=== PATIENT | female | born 1975 | race African-American/Black ===

== ENCOUNTER 2017-02-09 16:19 | Inpatient (IN) | payer BC, MEDICAID ==
[~2017-02-09] VITALS: Ht 165.1 cm; Wt 74.5 kg
[2017-02-09] MEDS ORDERED: SODIUM CHLORIDE 0.9% 1,000 ML IVB ONE (16:35)
[2017-02-09 18:11] LABS: Urine Bilirubin Negative (Negative); Urine Color Red (Yellow); Urine Glucose Normal (Normal); Urine Ketone TRACE (Negative); Urine Nitrite Negative (Negative); Urine RBC 3487 /hpf (0 - 4); Urine Squamous Epithelial Cell FEW /hpf (<5); Urine Urobilinogen Normal (Negative)
[2017-02-09 18:17] LABS: Urine Blood 3+ /uL (Negative)
[2017-02-09 18:38] LABS: Basophils # (auto) 0 uL; Basophils % (auto) 0.3 % (0.0-2.0); Eosinophils # (auto) 0.1 uL; Eosinophils % (auto) 1.2 % (0.0-7.0); Hematocrit 33.5 % (36.0-46.0); Hemoglobin 10.9 g/dL (12.2-16.2); Lymphocytes # (auto) 1.1 uL; Lymphocytes % (auto) 23.4 % (10.0-50.0); Mean Corpuscular Hemoglobin 28.3 pg (28.0-32.0); Mean Corpuscular Hgb Conc. 32.3 g/dL (32.0-36.0); Mean Corpuscular Volume 87.4 fL (80.0-100.0); Monocytes # (auto) 0.5 uL; Monocytes % (auto) 11.4 % (0.0-12.0); Neutrophils # (auto) 2.9 uL; Neutrophils % (auto) 63.7 % (37.0-80.0); Platelet Count (auto) 220 10^3/uL (140-450); Red Cell Distribution Width 15.8 % (11.6-16.0); White Blood Cell 4.5 10^3/uL (4.4-10.8)
[2017-02-09 18:53] LABS: INR 0.99 (0.9-1.15); Partial Thromboplastin Time 30.1 sec (22.64-33.71); Prothrombin Time 10.7 sec (9.37-12.3)
[2017-02-09 19:00] LABS: Albumin 3.4 g/dL (3.4-5.0); Alkaline Phosphatase 77 U/L (45-117); Anion Gap 10 (5-15); Aspartate Aminotransferase 165 U/L (15-37); Bilirubin, Total 0.5 mg/dL (0.2-1.0); Blood Urea Nitrogen 5 mg/dL (7-18); Calcium 8.6 mg/dL (8.5-10.1); Carbon Dioxide 23 mmol/L (21-32); Chloride 104 mmol/L (98-107); GFR African American 96 mL/min; GFR Non-African American 79 mL/min; Glucose 69 mg/dL (74-106); Magnesium 2.7 mg/dL (1.6-2.6); Potassium 4.3 mmol/L (3.5-5.1); Sodium 137 mmol/L (136-145); Total Protein 7.7 g/dL (6.4-8.2)
[2017-02-09] MEDS ORDERED: cefTRIAXone 1GM/50ML D5W 50 ML IV ONE (19:45)
[2017-02-09] MEDS ORDERED: CLINDAMYCIN 600MG IV 50 ML IV ONE (23:00)
[2017-02-09] MEDS ORDERED: ACETAMINOPHEN 325 MG TAB PO PRN (23:00)
[2017-02-10] VITALS (7 sets, daily range): BP systolic 100–125; BP diastolic 64–82
[2017-02-10] MEDS ORDERED: PANT40TA2 PO (01:18)
[2017-02-10] MEDS ORDERED: TRAM-297 PO (01:18)
[2017-02-10] MEDS ORDERED: ALPR1TAB2 PO (01:18)
[2017-02-10] MEDS: HYDROcodone-ACET 7.5/325MG TAB PO PRN ×3 (02:09→16:39)
[2017-02-10] MEDS: CLINDAMYCIN 600MG IV 50 ML IV SCH ×3 (05:36→23:01)
[2017-02-10 05:39] LABS: Basophils # (auto) 0 uL; Basophils % (auto) 0.1 % (0.0-2.0); Eosinophils # (auto) 0.1 uL; Eosinophils % (auto) 3.1 % (0.0-7.0); Hematocrit 33.6 % (36.0-46.0); Hemoglobin 10.8 g/dL (12.2-16.2); Lymphocytes # (auto) 1.3 uL; Lymphocytes % (auto) 35.2 % (10.0-50.0); Mean Corpuscular Hemoglobin 28.3 pg (28.0-32.0); Mean Corpuscular Hgb Conc. 32.2 g/dL (32.0-36.0); Mean Corpuscular Volume 87.8 fL (80.0-100.0); Monocytes # (auto) 0.5 uL; Monocytes % (auto) 14.4 % (0.0-12.0); Neutrophils # (auto) 1.8 uL; Neutrophils % (auto) 47.2 % (37.0-80.0); Platelet Count (auto) 232 10^3/uL (140-450); Red Cell Distribution Width 15.8 % (11.6-16.0); White Blood Cell 3.7 10^3/uL (4.4-10.8)
[2017-02-10 06:04] LABS: Albumin 2.9 g/dL (3.4-5.0); BUN/Creatinine Ratio 6.3; Bilirubin, Total 0.3 mg/dL (0.2-1.0); Calcium 8.5 mg/dL (8.5-10.1); Potassium 3.9 mmol/L (3.5-5.1); Total Protein 6.7 g/dL (6.4-8.2)
[2017-02-10] MEDS: NITROFURANTOIN (MONO) 100 mg CAP PO SCH ×2 (08:39→23:01)
[2017-02-10] MEDS: PARoxetine 20 MG TAB PO SCH (08:40)
[2017-02-10] MEDS: ENOXAPARIN SOD 40 MG/0.4 ML SYRINGE SC SCH (08:40)
[2017-02-10] MEDS: FAMOTIDINE 20 MG TAB PO SCH ×2 (08:46→22:00)
[2017-02-10] MEDS ORDERED: ALPRAZolam 0.25 MG TAB PO PRN ×2 (13:45→23:45)
[2017-02-10] MEDS: FUROSEMIDE 20 MG/2 ML VIAL IV SCH (18:25)
[2017-02-10] MEDS: ONDANSETRON HCL 4 MG/2 ML VIAL IV PRN (20:56)
[2017-02-10] MEDS: POTASSIUM CHLORIDE 8 MEQ TAB PO SCH (23:01)
[2017-02-11] MEDS: HYDROcodone-ACET 10/325MG TAB PO PRN ×3 (03:06→17:46)
[2017-02-11 05:00] VITALS: BP 106/51
[2017-02-11 05:55] LABS: Basophils # (auto) 0 uL; Basophils % (auto) 0.2 % (0.0-2.0); Eosinophils # (auto) 0.1 uL; Eosinophils % (auto) 2.8 % (0.0-7.0); Hematocrit 33.1 % (36.0-46.0); Hemoglobin 10.7 g/dL (12.2-16.2); Lymphocytes # (auto) 1.3 uL; Lymphocytes % (auto) 42.9 % (10.0-50.0); Mean Corpuscular Hemoglobin 28.4 pg (28.0-32.0); Mean Corpuscular Hgb Conc. 32.2 g/dL (32.0-36.0); Mean Corpuscular Volume 88.3 fL (80.0-100.0); Mean Platelet Volume 8.8 fL (7.4-10.4); Monocytes # (auto) 0.3 uL; Monocytes % (auto) 9.4 % (0.0-12.0); Neutrophils # (auto) 1.3 uL; Neutrophils % (auto) 44.7 % (37.0-80.0); Platelet Count (auto) 256 10^3/uL (140-450); Red Cell Distribution Width 15.4 % (11.6-16.0)
[2017-02-11] MEDS: CLINDAMYCIN 600MG IV 50 ML IV SCH ×3 (06:03→22:35)
[2017-02-11] MEDS: FUROSEMIDE 20 MG/2 ML VIAL IV SCH ×2 (06:04→17:46)
[2017-02-11 06:29] LABS: BUN/Creatinine Ratio 9.1; Calcium 8.4 mg/dL (8.5-10.1); Potassium 3.7 mmol/L (3.5-5.1)
[2017-02-11 09:00] VITALS: BP 117/70
[2017-02-11] MEDS: PARoxetine 20 MG TAB PO SCH (10:00)
[2017-02-11] MEDS: FAMOTIDINE 20 MG TAB PO SCH (10:02)
[2017-02-11] MEDS: POTASSIUM CHLORIDE 8 MEQ TAB PO SCH (10:02)
[2017-02-11] MEDS: NITROFURANTOIN (MONO) 100 mg CAP PO SCH (10:04)
[2017-02-11] MEDS: ENOXAPARIN SOD 40 MG/0.4 ML SYRINGE SC SCH (10:04)
[2017-02-11] MEDS: ALPRAZolam 0.5 MG TAB PO PRN ×2 (11:14→17:47)
[2017-02-11 12:38] VITALS: BP 134/78
[2017-02-11] MEDS ORDERED: DOXY-216 PO (14:31)
[2017-02-11] MEDS ORDERED: FURO20TA PO (14:31)
[2017-02-11] MEDS: DOXYCYCLINE 100 MG TAB/CAP PO SCH ×2 (14:45→22:36)
[2017-02-11] MEDS: VANCOMYCIN 1GM/250ML D5W 250 ML IV SCH (15:00)
[2017-02-11] MEDS: diphenhdrAMINE HCL 25 MG CAP PO PRN ×2 (16:10→22:44)
[2017-02-11 16:28] VITALS: BP 128/84
[2017-02-11 20:00] VITALS: BP 111/70
[2017-02-11] MEDS: ONDANSETRON HCL 4 MG/2 ML VIAL IV PRN (20:59)
[2017-02-11 22:00] VITALS: BP 113/71
[2017-02-11] MEDS: POTASSIUM CHL 20 Meq TABLET PO SCH (22:36)
[2017-02-12] MEDS: ALPRAZolam 0.5 MG TAB PO PRN ×2 (00:26→06:26)
[2017-02-12] MEDS: HYDROcodone-ACET 10/325MG TAB PO PRN ×2 (00:26→06:25)
[2017-02-12] MEDS: VANCOMYCIN 1GM/250ML D5W 250 ML IV SCH ×2 (02:50→15:00)
[2017-02-12 05:00] VITALS: BP 94/58
[2017-02-12] MEDS: CLINDAMYCIN 600MG IV 50 ML IV SCH ×2 (05:39→14:00)
[2017-02-12] MEDS: FUROSEMIDE 20 MG/2 ML VIAL IV SCH (05:39)
[2017-02-12] MEDS: diphenhdrAMINE HCL 25 MG CAP PO PRN (05:51)
[2017-02-12 08:00] VITALS: BP 94/58
[2017-02-12] MEDS ORDERED: PANTOPRAZOLE 40 MG TAB PO SCH (10:00)
[2017-02-12] MEDS: DOXYCYCLINE 100 MG TAB/CAP PO SCH (10:11)
[2017-02-12] MEDS: POTASSIUM CHL 20 Meq TABLET PO SCH (10:11)
[2017-02-12] MEDS: ENOXAPARIN SOD 40 MG/0.4 ML SYRINGE SC SCH (10:11)
[2017-02-12 10:43] VITALS: BP 118/73
== END 2017-02-12 12:15 | disposition home or self-care (01) | DRG 383 ==
LOC: ER 16:23 → OVERFLOW 16:24 → WEST WING 16:25
PROVIDERS: ADMIT Nurse Practitioner; ATTEND Hospitalist
DX: L03.115 Cellulitis of right lower limb (principal); N39.0 Urinary tract infection, site not specified; F32.9 Major depressive disorder, single episode, unspecified; F17.210 Nicotine dependence, cigarettes, uncomplicated; F43.10 Post-traumatic stress disorder, unspecified; G89.29 Other chronic pain; K21.9 Gastro-esophageal reflux disease without esophagitis; L03.116 Cellulitis of left lower limb; M12.9 Arthropathy, unspecified; G62.9 Polyneuropathy, unspecified; R29.6 Repeated falls; M54.2 Cervicalgia; M54.5 Low back pain; F41.9 Anxiety disorder, unspecified; D64.9 Anemia, unspecified; Z87.828 Personal history of other (healed) physical injury and trauma; Z82.49 Family history of ischemic heart disease and other diseases of the circulatory system; Z88.1 Allergy status to other antibiotic agents; Z91.040 Latex allergy status; Z83.3 Family history of diabetes mellitus
CPT/HCPCS: 36415; 70450; 71010; 80048; 80053; 81001; 82607; 82746; 82962; 83605; 83735; 84439; 84443; 84484; 84702; 85025; 85610; 85652; 85730; 86038; 87040; 87086; 93005; 93970; 94761; 96361; 96365; 96366; 96367; 96372; 96375; G0434; J0696; J2405; J3490

== ENCOUNTER 2017-03-09 13:39 | Inpatient (IN) | payer MEDICAID ==
[~2017-03-09] VITALS: Ht 162.6 cm; Wt 77.2 kg
[~2017-03-09 13:39] MED LIST: ALPR1TAB2 PO; DOXY-216 PO; FURO20TA PO; PANT40TA2 PO; TRAM-297 PO
[2017-03-09 15:04] LABS: Basophils # (auto) 0 uL; Basophils % (auto) 0.5 % (0.0-2.0); Eosinophils # (auto) 0.2 uL; Eosinophils % (auto) 3.3 % (0.0-7.0); Hematocrit 36.6 % (36.0-46.0); Hemoglobin 11.8 g/dL (12.2-16.2); Lymphocytes # (auto) 1.7 uL; Lymphocytes % (auto) 32.5 % (10.0-50.0); Mean Corpuscular Hemoglobin 28.4 pg (28.0-32.0); Mean Corpuscular Hgb Conc. 32.1 g/dL (32.0-36.0); Mean Corpuscular Volume 88.5 fL (80.0-100.0); Mean Platelet Volume 8.8 fL (7.4-10.4); Monocytes # (auto) 0.4 uL; Neutrophils # (auto) 2.9 uL; Neutrophils % (auto) 56.7 % (37.0-80.0); Platelet Count (auto) 200 10^3/uL (140-450); Red Cell Distribution Width 16.7 % (11.6-16.0); White Blood Cell 5.2 10^3/uL (4.4-10.8)
[2017-03-09 15:27] LABS: Albumin 3.8 g/dL (3.4-5.0); BUN/Creatinine Ratio 4.5; Calcium 8.5 mg/dL (8.5-10.1); Potassium 3.9 mmol/L (3.5-5.1)
[2017-03-09 15:29] LABS: Bilirubin, Total 0.2 mg/dL (0.2-1.0); Total Protein 7.3 g/dL (6.4-8.2)
[2017-03-09 16:57] LABS: B-Type Natriuretic Peptide 1.05 pg/mL (0-100)
[2017-03-09] MEDS ORDERED: SODIUM CHLORIDE 0.9% 1,000 ML IV ONE (16:57)
[2017-03-09] MEDS ORDERED: SODIUM CHLORIDE 0.9% 250 ML IV ONE (16:57)
[2017-03-09 16:58] LABS: Temperature: 23.4 C (20.0-25.0)
[2017-03-09] MEDS ORDERED: PIPERACILLIN-TAZOB 3.375GM 100 ML IV ONE (17:00)
[2017-03-09] MEDS ORDERED: metroNIDAZOLE 500MG/100ML 100 ML IV ONE (17:00)
[2017-03-09 17:09] LABS: Urine Bilirubin Negative (Negative); Urine Glucose Normal (Normal); Urine Ketone Negative (Negative); Urine Nitrite Negative (Negative); Urine RBC 1 /hpf (0 - 4); Urine Squamous Epithelial Cell MOD /hpf (<5); Urine Urobilinogen Normal (Negative)
[2017-03-09 17:11] LABS: Urine Blood 3+ /uL (Negative); Urine Color Yellow (Yellow)
[2017-03-09 17:34] LABS: INR 0.92 (0.9-1.15); Prothrombin Time 9.9 sec (9.37-12.3)
[2017-03-09] MEDS ORDERED: CLINDAMYCIN 600MG IV 50 ML IV ONE (17:45)
[2017-03-09] MEDS ORDERED: MORPHINE SULFATE 4 MG/ML SYRG IV ONE (17:45)
[2017-03-09] MEDS ORDERED: ONDANSETRON HCL 4 MG/2 ML VIAL IV ONE (17:45)
[2017-03-09] MEDS ORDERED: NITROGLYCERIN 0.4 MG SL TAB SL PRN (18:00)
[2017-03-09] MEDS ORDERED: LACTULOSE 20Gm/30ML SOLN PO PRN ×2 (18:00)
[2017-03-09] MEDS ORDERED: LORazepam 0.5 MG TAB PO PRN (18:00)
[2017-03-09] MEDS ORDERED: ACETAMINOPHEN 500 MG TAB PO PRN (18:00)
[2017-03-09] MEDS ORDERED: TEMAZEPAM 15 MG CAP PO PRN (18:00)
[2017-03-09] MEDS ORDERED: MORPHINE SULF INJ 2 MG/ML SYRINGE 1ML IV PRN (18:00)
[2017-03-09] MEDS ORDERED: PROCHLORPERAZINE EDISYLATE 5 MG/ML 2ML VIAL IV PRN (18:00)
[2017-03-09] MEDS ORDERED: ENOXAPARIN SOD 40 MG/0.4 ML SYRINGE SC ONE (18:30)
[2017-03-09] MEDS: POTASSIUM CHL 20 Meq TABLET PO ONE ×2 (18:30→18:57)
[2017-03-09] MEDS ORDERED: cefTRIAXone 1GM/50ML D5W 50 ML IV ONE (18:30)
[2017-03-09] MEDS ORDERED: FUROSEMIDE 40 MG/4 ML VIAL IV ONE (18:30)
[2017-03-09] MEDS ORDERED: POTASSIUM CHL 10% (20 MEQ/15ML) ORAL SOLN PO ONE (19:15)
[2017-03-09 23:00] VITALS: BP 121/68
[2017-03-09] MEDS: CLINDAMYCIN 600MG IV 50 ML IV SCH (23:00)
[2017-03-10] VITALS (7 sets, daily range): BP systolic 98–118; BP diastolic 47–67
[2017-03-10] MEDS: MORPHINE SULF INJ 2 MG/ML SYRINGE 1ML IV PRN ×3 (03:46→16:04)
[2017-03-10] MEDS ORDERED: CYCL1TAB18 PO (04:10)
[2017-03-10] MEDS: CLINDAMYCIN 600MG IV 50 ML IV SCH ×3 (06:09→21:22)
[2017-03-10 06:24] LABS: Basophils # (auto) 0 uL; Basophils % (auto) 0.3 % (0.0-2.0); Eosinophils # (auto) 0.1 uL; Hematocrit 30.8 % (36.0-46.0); Hemoglobin 9.8 g/dL (12.2-16.2); Lymphocytes # (auto) 1.5 uL; Lymphocytes % (auto) 30.4 % (10.0-50.0); Mean Corpuscular Hemoglobin 28.3 pg (28.0-32.0); Mean Corpuscular Volume 88.4 fL (80.0-100.0); Mean Platelet Volume 9.2 fL (7.4-10.4); Monocytes # (auto) 0.6 uL; Monocytes % (auto) 11.4 % (0.0-12.0); Neutrophils # (auto) 2.7 uL; Neutrophils % (auto) 54.9 % (37.0-80.0); Platelet Count (auto) 178 10^3/uL (140-450); Red Cell Distribution Width 16.5 % (11.6-16.0); White Blood Cell 4.8 10^3/uL (4.4-10.8)
[2017-03-10] MEDS: HYDROcodone-ACET 5/325MG TAB PO PRN ×3 (06:28→21:13)
[2017-03-10] MEDS: cefTRIAXone 1GM/50ML D5W 50 ML IV SCH (09:26)
[2017-03-10] MEDS: FUROSEMIDE 40 MG/4 ML VIAL IV SCH (09:26)
[2017-03-10] MEDS: PANTOPRAZOLE 40 MG TAB PO SCH (09:27)
[2017-03-10] MEDS: POTASSIUM CHL 20 Meq TABLET PO SCH (09:27)
[2017-03-10] MEDS: ENOXAPARIN SOD 40 MG/0.4 ML SYRINGE SC SCH (09:28)
[2017-03-10] MEDS: ALPRAZolam 0.5 MG TAB PO PRN ×2 (10:56→21:12)
[2017-03-10] MEDS: SODIUM CHLORIDE 0.9% 1,000 ML IV SCH (12:45)
[2017-03-10] MEDS ORDERED: diphenhdrAMINE HCL 25 MG CAP PO PRN (15:00)
[2017-03-11] MEDS: SODIUM CHLORIDE 0.9% 1,000 ML IV SCH (02:05)
[2017-03-11 05:00] VITALS: BP 95/59
[2017-03-11] MEDS: CLINDAMYCIN 600MG IV 50 ML IV SCH ×2 (05:50→14:00)
[2017-03-11 06:02] LABS: Basophils # (auto) 0 uL; Basophils % (auto) 0.7 % (0.0-2.0); Eosinophils # (auto) 0.1 uL; Eosinophils % (auto) 3.6 % (0.0-7.0); Hematocrit 31.9 % (36.0-46.0); Hemoglobin 10.2 g/dL (12.2-16.2); Lymphocytes # (auto) 1.6 uL; Lymphocytes % (auto) 47.2 % (10.0-50.0); Mean Corpuscular Hemoglobin 28.2 pg (28.0-32.0); Mean Corpuscular Volume 88.2 fL (80.0-100.0); Mean Platelet Volume 9.3 fL (7.4-10.4); Monocytes # (auto) 0.4 uL; Neutrophils # (auto) 1.3 uL; Neutrophils % (auto) 36.5 % (37.0-80.0); Platelet Count (auto) 193 10^3/uL (140-450); White Blood Cell 3.5 10^3/uL (4.4-10.8)
[2017-03-11 06:47] LABS: Potassium 3.9 mmol/L (3.5-5.1)
[2017-03-11 06:53] LABS: BUN/Creatinine Ratio 8.5; Calcium 8.1 mg/dL (8.5-10.1)
[2017-03-11 08:00] VITALS: BP 117/74
[2017-03-11] MEDS: MORPHINE SULF INJ 2 MG/ML SYRINGE 1ML IV PRN (08:27)
[2017-03-11] MEDS: cefTRIAXone 1GM/50ML D5W 50 ML IV SCH (08:28)
[2017-03-11 09:15] VITALS: BP 117/74
[2017-03-11] MEDS: FUROSEMIDE 40 MG/4 ML VIAL IV SCH (09:56)
[2017-03-11] MEDS: POTASSIUM CHL 20 Meq TABLET PO SCH (09:57)
[2017-03-11] MEDS: ENOXAPARIN SOD 40 MG/0.4 ML SYRINGE SC SCH (09:57)
[2017-03-11] MEDS: PANTOPRAZOLE 40 MG TAB PO SCH (09:57)
[2017-03-11] MEDS: ALPRAZolam 0.5 MG TAB PO PRN (10:08)
[2017-03-11] MEDS ORDERED: CIPR-173 PO (10:12)
[2017-03-11 11:08] VITALS: BP 117/74
[2017-03-11] MEDS: HYDROcodone-ACET 5/325MG TAB PO PRN (12:01)
[2017-03-11 13:31] VITALS: BP 121/85
== END 2017-03-11 16:15 | disposition home or self-care (01) | DRG 383 ==
LOC: ER 13:51 → TELE 13:52 → TELE-WESTW 21:06
PROVIDERS: ADMIT Internal Medicine; ATTEND Nurse Practitioner Acute Care
DX: L03.116 Cellulitis of left lower limb (principal); N39.0 Urinary tract infection, site not specified; K27.9 Peptic ulcer, site unspecified, unspecified as acute or chronic, without hemorrhage or perforation; T65.811A Toxic effect of latex, accidental (unintentional), initial encounter; L03.115 Cellulitis of right lower limb; J45.909 Unspecified asthma, uncomplicated; F17.210 Nicotine dependence, cigarettes, uncomplicated; F32.9 Major depressive disorder, single episode, unspecified; F41.9 Anxiety disorder, unspecified; Z82.49 Family history of ischemic heart disease and other diseases of the circulatory system; Z83.3 Family history of diabetes mellitus; Z91.040 Latex allergy status; Z88.1 Allergy status to other antibiotic agents; Z88.8 Allergy status to other drugs, medicaments and biological substances; Z79.899 Other long term (current) drug therapy; Y92.89 Other specified places as the place of occurrence of the external cause
CPT/HCPCS: 36415; 71010; 80048; 80053; 81001; 83880; 84443; 85025; 85379; 85610; 85652; 85730; 87040; 87081; 87086; 87088; 87186; 93970; 96365; 96372; 96375; J0696; J2405; J2543; J3490

== ENCOUNTER 2021-06-23 02:06 | Emergency (ER) | payer MEDICAID ==
[~2021-06-23] VITALS: Ht 162.6 cm; Wt 65.8 kg
[~2021-06-23 02:06] MED LIST changes: +CIPR-173 PO; +CYCL10TA6 PO; -DOXY-216 PO; -FURO20TA PO
[2021-06-23] MEDS ORDERED: FUROSEMIDE 20 MG TAB PO ONE (09:30)
[2021-06-23] MEDS ORDERED: HYDROcodone-ACET 5/325MG TAB PO ONE (09:30)
[2021-06-23] MEDS ORDERED: cefTRIAXone 1GM/50ML D5W 50 ML IV ONE (09:30)
[2021-06-23] MEDS ORDERED: SODIUM CHLORIDE 0.9% 1,000 ML IV ONE (09:45)
[2021-06-23 10:15] VITALS: BP 115/72
[2021-06-23 10:35] LABS: Basophils # (auto) 0 10 ^3/uL (0-0.2); Basophils % (auto) 0.4 % (0.0-2.0); Eosinophils # (auto) 0.1 10 ^3/uL (0-0.8); Eosinophils % (auto) 3.6 % (0.0-7.0); Hematocrit 30.7 % (36.0-46.0); Hemoglobin 10.1 g/dL (12.2-16.2); Lymphocytes # (auto) 1.1 10 ^3/uL (0.4-5.4); Mean Corpuscular Hemoglobin 27.2 pg (28.0-32.0); Mean Corpuscular Hgb Conc. 32.7 g/dL (32.0-36.0); Mean Corpuscular Volume 83.2 fL (80.0-100.0); Monocytes # (auto) 0.3 10 ^3/uL (0-1.3); Monocytes % (auto) 11.1 % (0.0-12.0); Neutrophils # (auto) 1.3 10 ^3/uL (1.6-8.6); Neutrophils % (auto) 45.9 % (37.0-80.0); Red Cell Distribution Width 15.7 % (11.8-14.3); White Blood Cell 2.9 10^3/uL (4.4-10.8)
[2021-06-23 10:57] LABS: Calcium 8.7 mg/dL (8.5-10.1); Magnesium 2.5 mg/dL (1.6-2.6)
[2021-06-23 11:01] LABS: BUN/Creatinine Ratio 12.1; Bilirubin, Total 0.2 mg/dL (0.2-1.0); Total Protein 7.6 g/dL (6.4-8.2)
[2021-06-23] MEDS ORDERED: POTASSIUM EFFERVESENT TAB 25 MEQ PO ONE (11:30)
[2021-06-23 12:44] LABS: Urine Bacteria FEW /hpf (None Seen); Urine Blood 2+ /uL (Negative); Urine Mucus FEW (None Seen); Urine Specific Gravity 1.014 (1.001-1.035); Urine WBC 2 /hpf (0 - 5)
== END 2021-06-23 13:19 | disposition home or self-care (01) ==
LOC: ER 02:06
DX: I87.2 Venous insufficiency (chronic) (peripheral) (principal); D64.9 Anemia, unspecified; N39.0 Urinary tract infection, site not specified; E87.6 Hypokalemia; F17.210 Nicotine dependence, cigarettes, uncomplicated; Z79.2 Long term (current) use of antibiotics; Z79.899 Other long term (current) drug therapy; Z88.8 Allergy status to other drugs, medicaments and biological substances; Z91.040 Latex allergy status
CPT/HCPCS: 36415; 71046; 80053; 81001; 83735; 83880; 84443; 85025; 93970; 96361; 96365; 99285; J0696; J7030